=== PATIENT | male | born 1990 | race Caucasian/White ===

== ENCOUNTER 2020-05-24 15:18 | Outpatient (CLI) | payer MEDICAID | END 2020-05-24 15:19 | disposition critical access hospital (66) | LOC: EMS 15:18 | PROVIDERS: ATTEND Surgery | DX: R10.9 Unspecified abdominal pain (principal); K92.1 Melena | CPT/HCPCS: A0425; A0429 ==

== ENCOUNTER 2020-05-24 15:40 | Emergency (ER) | payer MEDICAID, OTHER ==
[2020-05-24 16:08] VITALS: BP 134/83
== END 2020-05-24 16:20 | disposition left against medical advice (07) ==
LOC: EDUNIT# → ED 15:40
DX: Z53.21 Procedure and treatment not carried out due to patient leaving prior to being seen by health care provider (principal)
CPT/HCPCS: 80053; 83690; 85025